=== PATIENT | male | born 1970 | race Caucasian/White ===

== ENCOUNTER 2016-09-11 11:53 | Emergency (ER) | payer OTHER ==
[~2016-09-11 11:53] MED LIST: ASPIR LOW81 MG PO; ASPIRIN 32325 MG/TAB PO; LEVAQUIN 5500 MG/TA1 PO; NO HOME MEDICATIONS; NORCO 325 MG-51 TA1 PO
[2016-09-11] MEDS ORDERED: KETOROLAC10 MG PO (14:09)
[2016-09-11 14:18] VITALS: BP 113/80
== END 2016-09-11 14:37 | disposition home or self-care (01) ==
LOC: ED 11:53
DX: S39.011A Strain of muscle, fascia and tendon of abdomen, initial encounter (principal); X58.XXXA Exposure to other specified factors, initial encounter
CPT/HCPCS: J1885

== ENCOUNTER → 2016-12-08 | Outpatient (CLI) | payer OTHER ==
[~2016-12-08] MED LIST changes: +KETOROLAC10 MG PO
== END ==
LOC: RAD 13:59
DX: R07.81 Pleurodynia (principal)

== ENCOUNTER → 2017-07-05 | Outpatient (CLI) | payer OTHER ==
[~2017-07-05] VITALS: Ht 167.6 cm; Wt 86.4 kg
[2017-07-05 16:01] VITALS: BP 125/91
[2017-07-05 16:06] LABS: ALBUMIN 4.6 g/dL (3.5-5.0); BUN/CREATININE RATIO 14.4 (6.0-26.0); POTASSIUM 4.1 mmol/L (3.6-5.0); TOTAL BILIRUBIN 0.7 mg/dL (0.2-1.3); TOTAL PROTEIN 7.8 g/dL (6.3-8.2)
[2017-07-05 16:12] LABS: EOS # 0.2 (0.04-0.40); EOS % 3.5 % (0.0-4.0); HEMATOCRIT 47.7 % (42.0-52.0); HEMOGLOBIN 16.5 g/dL (13.5-18.0); MEAN CELL VOLUME 83 fl (78-100); MEAN CORPUSCULAR HEMOGLOBIN 29 pg (27-31); MEAN CORPUSCULAR HGB CONC 35 g/dL (33-37); MEAN PLATELET VOLUME 9.7 fl (7.4-10.4); MONO # 0.7 (0.20-0.80); NEU # 4.2 (1.40-6.50); PLATELET COUNT 238 K/mm3 (130-400); RED BLOOD COUNT 5.77 M/mm3 (4.20-5.60); RED CELL DISTRIBUTION WIDTH 13.1 % (11.5-14.5); WHITE BLOOD COUNT 6.2 K/mm3 (4.8-10.8)
== END ==
LOC: AMSURD 15:25
PROVIDERS: Nurse Practitioner Family
DX: R05 Cough (principal); B33.0 Epidemic myalgia; R55 Syncope and collapse; R00.0 Tachycardia, unspecified

== ENCOUNTER → 2017-07-07 | Outpatient (CLI) | payer OTHER ==
[2017-07-05 16:01] VITALS: BP 125/91
== END ==
LOC: RAD 15:45
DX: R55 Syncope and collapse (principal); Z86.69 Personal history of other diseases of the nervous system and sense organs
CPT/HCPCS: Q9967

== ENCOUNTER → 2017-08-28 | Outpatient (CLI) | payer OTHER ==
[2017-07-05 16:01] VITALS: BP 125/91
== END ==
LOC: RAD 13:21
DX: R05 Cough (principal); Z88.5 Allergy status to narcotic agent

== ENCOUNTER → 2017-09-13 | Outpatient (CLI) | payer OTHER ==
[2017-07-05 16:01] VITALS: BP 125/91
== END ==
LOC: LAB 14:45
DX: J18.9 Pneumonia, unspecified organism (principal); Z88.5 Allergy status to narcotic agent

== ENCOUNTER → 2017-10-04 | Outpatient (CLI) | payer OTHER ==
[2017-07-05 16:01] VITALS: BP 125/91
== END ==
LOC: RAD 12:03
DX: J18.9 Pneumonia, unspecified organism (principal); N28.9 Disorder of kidney and ureter, unspecified
CPT/HCPCS: Q9967

== ENCOUNTER → 2017-10-11 | Outpatient (CLI) | payer OTHER ==
[2017-07-05 16:01] VITALS: BP 125/91
== END ==
LOC: RAD 14:18
DX: N28.1 Cyst of kidney, acquired (principal)
CPT/HCPCS: Q9967

== ENCOUNTER 2017-11-16 11:56 | Emergency (ER) | payer OTHER ==
[~2017-11-16] VITALS: Ht 167.6 cm; Wt 86.4 kg
[2017-11-16 12:37] LABS: HEMATOCRIT 42.7 % (42.0-52.0); MEAN CELL VOLUME 82 fl (78-100); MEAN CORPUSCULAR HEMOGLOBIN 29 pg (27-31); MEAN CORPUSCULAR HGB CONC 35 g/dL (33-37); MEAN PLATELET VOLUME 9.6 fl (7.4-10.4); PLATELET COUNT 224 K/mm3 (130-400); RED BLOOD COUNT 5.19 M/mm3 (4.20-5.60); RED CELL DISTRIBUTION WIDTH 12.4 % (11.5-14.5); WHITE BLOOD COUNT 9.8 K/mm3 (4.8-10.8)
[2017-11-16 12:56] LABS: BAND 1 % (0-10); LYMPHOCYTE 13 % (20-51); MONOCYTE 3 % (3-10); NEUTROPHILS 80 % (42-75)
[2017-11-16 13:12] LABS: ALBUMIN 4.2 g/dL (3.5-5.0); BUN/CREATININE RATIO 20.3 (6.0-26.0); CALCIUM 9.2 mg/dL (8.4-10.2); POTASSIUM 4.4 mmol/L (3.6-5.0); TOTAL BILIRUBIN 0.6 mg/dL (0.2-1.3); TOTAL PROTEIN 6.9 g/dL (6.3-8.2)
[2017-11-16 14:10] VITALS: BP 143/98
[2017-11-16 14:15] LABS: URINE APPEARANCE CLEAR; URINE BILIRUBIN NEGATIVE (NEGATIVE); URINE BLOOD 50 ery/uL (NEGATIVE); URINE COLOR YELLOW; URINE GLUCOSE NEGATIVE (NEGATIVE); URINE KETONE NEGATIVE (NEGATIVE); URINE LEUKOCYTE ESTERASE NEGATIVE (NEGATIVE); URINE MUCUS PRESENT (NOT PRESENT); URINE NITRATE NEGATIVE (NEGATIVE); URINE PROTEIN(semi-quant) 1+ mg/dL (NEGATIVE); URINE UROBILINOGEN NORMAL (NORMAL)
== END 2017-11-16 14:10 | disposition short-term general hospital (02) ==
LOC: ED 11:56
PROVIDERS: Physician Assistant
DX: S37.051A Moderate laceration of right kidney, initial encounter (principal); S37.011A Minor contusion of right kidney, initial encounter; V80.010A Animal-rider injured by fall from or being thrown from horse in noncollision accident, initial encounter
CPT/HCPCS: J2405; J3010; J7030; Q9967

== ENCOUNTER → 2017-12-12 | Outpatient (CLI) | payer OTHER ==
[2017-11-16 14:10] VITALS: BP 143/98
== END ==
LOC: RAD 11:32
DX: N28.89 Other specified disorders of kidney and ureter (principal)

== ENCOUNTER → 2018-06-13 | Outpatient (CLI) | payer OTHER ==
[2018-06-13 16:24] LABS: BASO # 0.1 (0.02-0.10); EOS # 0.2 (0.04-0.40); EOS % 2.6 % (0.0-4.0); HEMATOCRIT 47.7 % (42.0-52.0); HEMOGLOBIN 17.1 g/dL (13.5-18.0); LYMPH# 2.1 (1.50-4.00); MEAN CELL VOLUME 83 fl (78-100); MEAN CORPUSCULAR HEMOGLOBIN 30 pg (27-31); MEAN CORPUSCULAR HGB CONC 36 g/dL (33-37); MEAN PLATELET VOLUME 9.5 fl (7.4-10.4); MONO # 0.7 (0.20-0.80); NEU # 5.3 (1.40-6.50); PLATELET COUNT 267 K/mm3 (130-400); RED BLOOD COUNT 5.76 M/mm3 (4.20-5.60); RED CELL DISTRIBUTION WIDTH 12.5 % (11.5-14.5); WHITE BLOOD COUNT 8.4 K/mm3 (4.8-10.8)
[2018-06-13 16:34] LABS: ALBUMIN 4.9 g/dL (3.5-5.0); CALCIUM 9.9 mg/dL (8.4-10.2); POTASSIUM 4.8 mmol/L (3.6-5.0); TOTAL BILIRUBIN 0.9 mg/dL (0.2-1.3); TOTAL PROTEIN 7.7 g/dL (6.3-8.2)
== END ==
LOC: LAB 15:53
PROVIDERS: Family Medicine
DX: Z00.00 Encounter for general adult medical examination without abnormal findings (principal)

== ENCOUNTER → 2018-06-14 | Outpatient (CLI) | payer OTHER | LOC: CARDREHAB 14:47 | DX: R07.9 Chest pain, unspecified (principal) ==

== ENCOUNTER → 2018-06-18 | Day surgery (SDC) | payer OTHER | LOC: MSO 08:55 | DX: Z12.11 Encounter for screening for malignant neoplasm of colon (principal); Z12.0 Encounter for screening for malignant neoplasm of stomach; Z80.0 Family history of malignant neoplasm of digestive organs | CPT/HCPCS: J2405; J2704; J3010; J7120 ==

== ENCOUNTER → 2018-08-09 | Outpatient (CLI) | payer OTHER | LOC: RAD 08:27 | DX: Z87.442 Personal history of urinary calculi (principal) ==

== ENCOUNTER → 2018-10-11 | Outpatient (CLI) | payer OTHER ==
[~2018-10-11] MED LIST changes: +CIPRO500 M1 PO; +FLAGYL500 M1 PO; +ONDANSETRON HYDR4 MG PO; +PROTONIX TR40 M1 PO
[2018-10-11 13:45] LABS: HEMOGLOBIN 15.9 g/dL (13.5-18.0); MEAN CELL VOLUME 82 fl (78-100); MEAN CORPUSCULAR HEMOGLOBIN 29 pg (27-31); MEAN CORPUSCULAR HGB CONC 35 g/dL (33-37); MEAN PLATELET VOLUME 9.6 fl (7.4-10.4); PLATELET COUNT 230 K/mm3 (130-400); RED CELL DISTRIBUTION WIDTH 12.7 % (11.5-14.5); WHITE BLOOD COUNT 16.5 K/mm3 (4.8-10.8)
[2018-10-11 13:56] LABS: ALBUMIN 4.7 g/dL (3.5-5.0); CALCIUM 9.3 mg/dL (8.4-10.2); POTASSIUM 4.1 mmol/L (3.6-5.0); TOTAL BILIRUBIN 1.8 mg/dL (0.2-1.3); TOTAL PROTEIN 7.5 g/dL (6.3-8.2)
[2018-10-11 14:07] LABS: LYMPHOCYTE 6 % (20-51); MONOCYTE 5 % (3-10); NEUTROPHILS 89 % (42-75); PH-URINE 5.5 (5.0 - 8.0); URINE APPEARANCE CLEAR; URINE COLOR YELLOW; URINE PROTEIN(semi-quant) TRACE mg/dL (NEGATIVE)
[2018-10-11 14:08] LABS: URINE BILIRUBIN NEGATIVE (NEGATIVE); URINE BLOOD TRACE (NEGATIVE); URINE GLUCOSE NEGATIVE (NEGATIVE); URINE KETONE 2+ (NEGATIVE); URINE LEUKOCYTE ESTERASE TRACE (NEGATIVE); URINE MUCUS PRESENT (NOT PRESENT); URINE NITRATE NEGATIVE (NEGATIVE); URINE UROBILINOGEN NORMAL (NORMAL)
== END ==
LOC: RAD 13:30
PROVIDERS: Physician Assistant
DX: K57.90 Diverticulosis of intestine, part unspecified, without perforation or abscess without bleeding (principal)
CPT/HCPCS: Q9967

== ENCOUNTER → 2018-11-02 | Outpatient (CLI) | payer OTHER ==
[2018-10-15 11:02] VITALS: BP 122/82
[2018-11-02 13:44] LABS: EOS # 0.2 (0.04-0.40); EOS % 3.2 % (0.0-4.0); HEMATOCRIT 45.7 % (42.0-52.0); HEMOGLOBIN 15.7 g/dL (13.5-18.0); LYMPH# 1.3 (1.50-4.00); MEAN CELL VOLUME 82 fl (78-100); MEAN CORPUSCULAR HEMOGLOBIN 28 pg (27-31); MEAN CORPUSCULAR HGB CONC 34 g/dL (33-37); MEAN PLATELET VOLUME 9.3 fl (7.4-10.4); MONO # 0.4 (0.20-0.80); NEU # 3.4 (1.40-6.50); PLATELET COUNT 241 K/mm3 (130-400); RED BLOOD COUNT 5.57 M/mm3 (4.20-5.60); RED CELL DISTRIBUTION WIDTH 12.8 % (11.5-14.5); WHITE BLOOD COUNT 5.3 K/mm3 (4.8-10.8)
[2018-11-02 14:02] LABS: ALBUMIN 4.4 g/dL (3.5-5.0); POTASSIUM 4.1 mmol/L (3.5-5.1); TOTAL PROTEIN 6.9 g/dL (6.4-8.3)
== END ==
LOC: LAB 13:31
PROVIDERS: Physician Assistant
DX: K57.92 Diverticulitis of intestine, part unspecified, without perforation or abscess without bleeding (principal)

== ENCOUNTER 2019-01-21 14:27 | Emergency (ER) | payer OTHER ==
[~2019-01-21] VITALS: Ht 167.6 cm; Wt 81.8 kg
[2019-01-21 14:32] VITALS: BP 115/92
[2019-01-21 14:59] LABS: EOS # 0.2 (0.04-0.40); HEMOGLOBIN 15.3 g/dL (13.5-18.0); LYMPH# 1.1 (1.50-4.00); MEAN CELL VOLUME 81 fl (78-100); MEAN CORPUSCULAR HEMOGLOBIN 28 pg (27-31); MEAN CORPUSCULAR HGB CONC 35 g/dL (33-37); MEAN PLATELET VOLUME 9.2 fl (7.4-10.4); MONO # 0.6 (0.20-0.80); PLATELET COUNT 296 K/mm3 (130-400); RED BLOOD COUNT 5.44 M/mm3 (4.20-5.60); RED CELL DISTRIBUTION WIDTH 12.6 % (11.5-14.5)
[2019-01-21 15:10] LABS: ALBUMIN 3.9 g/dL (3.5-5.0); POTASSIUM 4.1 mmol/L (3.5-5.1)
[2019-01-21 15:11] LABS: CALCIUM 9.8 mg/dL (8.3-10.5)
[2019-01-21 15:12] LABS: TOTAL PROTEIN 7.8 g/dL (6.4-8.3)
[2019-01-21 15:14] LABS: TOTAL BILIRUBIN 0.5 mg/dL (0.2-1.2)
[2019-01-21 15:25] LABS: PH-URINE 5.5 (5.0 - 8.0); URINE APPEARANCE HAZY; URINE BILIRUBIN NEGATIVE (NEGATIVE); URINE BLOOD NEGATIVE (NEGATIVE); URINE COLOR YELLOW; URINE GLUCOSE NEGATIVE (NEGATIVE); URINE KETONE NEGATIVE (NEGATIVE); URINE NITRATE NEGATIVE (NEGATIVE); URINE PROTEIN(semi-quant) TRACE mg/dL (NEGATIVE); URINE UROBILINOGEN NORMAL (NORMAL)
[2019-01-21 15:26] LABS: URINE LEUKOCYTE ESTERASE TRACE (NEGATIVE)
== END 2019-01-21 16:59 | disposition home or self-care (01) ==
LOC: ED 14:27
PROVIDERS: Nurse Practitioner Primary Care
DX: E86.0 Dehydration (principal); R10.9 Unspecified abdominal pain; Z87.19 Personal history of other diseases of the digestive system; Z90.89 Acquired absence of other organs
CPT/HCPCS: J7030

== ENCOUNTER → 2019-02-05 | Outpatient (CLI) | payer OTHER ==
[~2019-02-05] VITALS: Ht 167.6 cm; Wt 81.8 kg
[2019-02-05 14:25] LABS: HEMATOCRIT 45.8 % (42.0-52.0); HEMOGLOBIN 15.6 g/dL (13.5-18.0); MEAN PLATELET VOLUME 9.3 fl (7.4-10.4); RED BLOOD COUNT 5.59 M/mm3 (4.20-5.60); RED CELL DISTRIBUTION WIDTH 13.1 % (11.5-14.5); WHITE BLOOD COUNT 6.2 K/mm3 (4.8-10.8)
[2019-02-05 14:26] LABS: ALBUMIN 4.2 g/dL (3.5-5.0); POTASSIUM 4.1 mmol/L (3.5-5.1)
[2019-02-05 14:27] LABS: CALCIUM 9.8 mg/dL (8.3-10.5)
[2019-02-05 14:28] LABS: TOTAL PROTEIN 7.1 g/dL (6.4-8.3)
[2019-02-05 14:30] LABS: TOTAL BILIRUBIN 0.7 mg/dL (0.2-1.2)
[2019-02-05 14:44] VITALS: BP 108/67
== END ==
LOC: LAB 12:59
PROVIDERS: Surgery
DX: Z01.818 Encounter for other preprocedural examination (principal)

== ENCOUNTER → 2019-05-29 | Outpatient (CLI) | payer OTHER ==
[2019-02-05 14:44] VITALS: BP 108/67
[2019-05-29 12:27] LABS: ALBUMIN 4.4 g/dL (3.5-5.0); POTASSIUM 4.5 mmol/L (3.5-5.1)
[2019-05-29 12:28] LABS: CALCIUM 9.5 mg/dL (8.3-10.5); EOS # 0.2 (0.04-0.40); EOS % 2.6 % (0.0-4.0); HEMATOCRIT 47.6 % (42.0-52.0); HEMOGLOBIN 16.7 g/dL (13.5-18.0); LYMPH# 1.5 (1.50-4.00); MEAN CELL VOLUME 81 fl (78-100); MEAN CORPUSCULAR HEMOGLOBIN 29 pg (27-31); MEAN CORPUSCULAR HGB CONC 35 g/dL (33-37); MEAN PLATELET VOLUME 9.2 fl (7.4-10.4); MONO # 0.5 (0.20-0.80); PLATELET COUNT 231 K/mm3 (130-400); RED BLOOD COUNT 5.85 M/mm3 (4.20-5.60); RED CELL DISTRIBUTION WIDTH 12.9 % (11.5-14.5); WHITE BLOOD COUNT 6.1 K/mm3 (4.8-10.8)
[2019-05-29 12:29] LABS: TOTAL PROTEIN 7.2 g/dL (6.4-8.3)
[2019-05-29 12:31] LABS: TOTAL BILIRUBIN 0.9 mg/dL (0.2-1.2)
== END ==
LOC: LAB 12:07
PROVIDERS: Physician Assistant
DX: R10.9 Unspecified abdominal pain (principal); M10.9 Gout, unspecified; M79.672 Pain in left foot; M79.676 Pain in unspecified toe(s)

== ENCOUNTER → 2019-08-19 | Outpatient (CLI) | payer OTHER ==
[2019-02-05 14:44] VITALS: BP 108/67
== END ==
LOC: RAD 14:00
DX: R93.421 Abnormal radiologic findings on diagnostic imaging of right kidney (principal)
CPT/HCPCS: Q9967

== ENCOUNTER → 2021-04-01 | Outpatient (CLI) | payer OTHER ==
[~2021-04-01] VITALS: Ht 167.6 cm; Wt 81.8 kg
[2021-04-01 15:56] VITALS: BP 147/88
[2021-04-01 16:55] VITALS: BP 146/84
== END ==
LOC: AMSURD 15:39
DX: U07.1 COVID-19 (principal)
CPT/HCPCS: J7030

== ENCOUNTER → 2021-04-21 | Outpatient (CLI) | payer OTHER ==
[2021-04-21 16:29] LABS: BASO # 0.07 K/mm3 (0.02-0.10); EOS # 0.21 K/mm3 (0.04-0.40); EOS % 2.2 % (0.0-4.0); HEMATOCRIT 47.1 % (42.0-52.0); HEMOGLOBIN 15.7 g/dL (13.5-18.0); LYMPH# 1.92 K/mm3 (1.50-4.00); MEAN CELL VOLUME 86 fl (78-100); MEAN CORPUSCULAR HEMOGLOBIN 29 pg (27-31); MEAN CORPUSCULAR HGB CONC 33 g/dL (33-37); MEAN PLATELET VOLUME 8.8 fl (7.4-10.4); MONO # 0.63 K/mm3 (0.20-0.80); NEU # 6.47 K/mm3 (1.40-6.50); PLATELET COUNT 229 K/mm3 (130-400); WHITE BLOOD COUNT 9.4 K/mm3 (4.8-10.8)
[2021-04-21 16:58] LABS: POTASSIUM 4.1 mmol/L (3.5-5.1)
[2021-04-21 16:59] LABS: CALCIUM 9.4 mg/dL (8.3-10.5)
[2021-04-21 17:00] LABS: TOTAL PROTEIN 6.9 g/dL (6.4-8.3)
[2021-04-21 17:02] LABS: TOTAL BILIRUBIN 0.7 mg/dL (0.2-1.2)
== END ==
LOC: LAB 15:55
PROVIDERS: Physician Assistant
DX: Z12.5 Encounter for screening for malignant neoplasm of prostate (principal); Z13.1 Encounter for screening for diabetes mellitus; K90.9 Intestinal malabsorption, unspecified; E78.5 Hyperlipidemia, unspecified; R05.9 Cough, unspecified

== ENCOUNTER → 2022-07-20 | Outpatient (CLI) | payer OTHER | LOC: RAD 07:53 | DX: K31.9 Disease of stomach and duodenum, unspecified (principal); K44.9 Diaphragmatic hernia without obstruction or gangrene; K76.0 Fatty (change of) liver, not elsewhere classified; K57.30 Diverticulosis of large intestine without perforation or abscess without bleeding | CPT/HCPCS: Q9967 ==

== ENCOUNTER → 2023-04-03 | Outpatient (CLI) | payer OTHER ==
[~2023-04-03] MED LIST changes: +ALEVE220 M1 PO; +LIDOCAINE1 EAC1 TP
[2023-04-03 15:04] LABS: BASO # 0.04 K/mm3 (0.02-0.10); EOS % 1.3 % (0.0-4.0); HEMATOCRIT 46.2 % (42.0-52.0); HEMOGLOBIN 15.7 g/dL (13.5-18.0); LYMPH# 1.57 K/mm3 (1.50-4.00); MEAN CELL VOLUME 84 fl (78-100); MEAN CORPUSCULAR HEMOGLOBIN 29 pg (27-31); MEAN CORPUSCULAR HGB CONC 34 g/dL (33-37); MEAN PLATELET VOLUME 9.1 fl (7.4-10.4); MONO # 0.61 K/mm3 (0.20-0.80); NEU # 5.54 K/mm3 (1.40-6.50); PLATELET COUNT 214 K/mm3 (130-400); RED CELL DISTRIBUTION WIDTH 12.3 % (11.5-14.5); WHITE BLOOD COUNT 7.9 K/mm3 (4.8-10.8)
[2023-04-03 15:08] LABS: ALBUMIN 4.5 g/dL (3.5-5.0)
[2023-04-03 15:09] LABS: CALCIUM 9.3 mg/dL (8.3-10.5)
[2023-04-03 15:11] LABS: TOTAL PROTEIN 7.1 g/dL (6.4-8.3)
[2023-04-03 15:12] LABS: TOTAL BILIRUBIN 1.4 mg/dL (0.2-1.2)
[2023-04-03 16:23] LABS: ERYTHROCYTE SEDIMENTATION RATE 3 mm/hr (0-20)
== END ==
LOC: RAD 14:45
PROVIDERS: Nurse Practitioner Family
DX: M25.461 Effusion, right knee (principal)

== ENCOUNTER → 2023-04-13 | Outpatient (CLI) | payer OTHER | LOC: RAD 16:36 | DX: S89.91XD Unspecified injury of right lower leg, subsequent encounter (principal); X58.XXXD Exposure to other specified factors, subsequent encounter ==

== ENCOUNTER 2023-08-30 10:31 | Emergency (ER) | payer OTHER ==
[~2023-08-30] VITALS: Ht 165.1 cm; Wt 90.9 kg
[2023-08-30] MEDS ORDERED: Morphine 4 MG/ML VIAL IV ONE ×2 (11:15→13:00)
[2023-08-30] MEDS ORDERED: Ondansetron 4 MG/2 ML VIAL IV ONE (11:15)
[2023-08-30 11:28] LABS: BASO # 0.05 K/mm3 (0.02-0.10); EOS # 0.25 K/mm3 (0.04-0.40); HEMATOCRIT 47.9 % (42.0-52.0); HEMOGLOBIN 16.3 g/dL (13.5-18.0); LYMPH# 1.42 K/mm3 (1.50-4.00); MEAN CELL VOLUME 84 fl (78-100); MEAN CORPUSCULAR HEMOGLOBIN 29 pg (27-31); MEAN CORPUSCULAR HGB CONC 34 g/dL (33-37); MEAN PLATELET VOLUME 9.2 fl (7.4-10.4); MONO # 0.47 K/mm3 (0.20-0.80); NEU # 3.96 K/mm3 (1.40-6.50); PLATELET COUNT 209 K/mm3 (130-400); RED BLOOD COUNT 5.71 M/mm3 (4.20-5.60); RED CELL DISTRIBUTION WIDTH 12.5 % (11.5-14.5); WHITE BLOOD COUNT 6.2 K/mm3 (4.8-10.8)
[2023-08-30 11:31] LABS: ALBUMIN 4.4 g/dL (3.5-5.0); SODIUM 139 mmol/L (136-145)
[2023-08-30 11:32] LABS: CALCIUM 9.7 mg/dL (8.3-10.5)
[2023-08-30 11:33] LABS: GLUCOSE 108 mg/dL (75-110); TOTAL PROTEIN 6.7 g/dL (6.4-8.3)
[2023-08-30 11:34] LABS: CARBON DIOXIDE 24 mmol/L (22-29)
[2023-08-30 11:35] LABS: TOTAL BILIRUBIN 0.7 mg/dL (0.2-1.2)
[2023-08-30 11:38] LABS: URINE APPEARANCE CLEAR (CLEAR); URINE BILIRUBIN NEGATIVE (NEGATIVE); URINE BLOOD NEGATIVE (NEGATIVE); URINE COLOR YELLOW (YELLOW); URINE GLUCOSE TRACE (NEGATIVE); URINE KETONE NEGATIVE (NEGATIVE); URINE LEUKOCYTE ESTERASE NEGATIVE (NEGATIVE); URINE NITRATE NEGATIVE (NEGATIVE); URINE PROTEIN(semi-quant) NEGATIVE (NEGATIVE)
[2023-08-30 11:39] LABS: AST-SGOT 26 U/L (5-34)
[2023-08-30 11:40] LABS: ALT/SGPT 46 U/L (0-55)
[2023-08-30 11:42] LABS: URINE MUCUS PRESENT (NOT PRESENT)
[2023-08-30 11:46] LABS: TROPONIN-I < 0.030 ng/mL (0.00-0.033)
[2023-08-30 13:33] VITALS: BP 132/91
== END 2023-08-30 13:30 | disposition home or self-care (01) ==
LOC: ED 10:31
PROVIDERS: Family Medicine
DX: I16.1 Hypertensive emergency (principal)
CPT/HCPCS: J2270; J2405

== ENCOUNTER → 2023-09-06 | Outpatient (CLI) | payer OTHER | LOC: LAB 08:22 | DX: Z12.5 Encounter for screening for malignant neoplasm of prostate (principal); E78.5 Hyperlipidemia, unspecified; R53.83 Other fatigue; R73.9 Hyperglycemia, unspecified; K90.9 Intestinal malabsorption, unspecified ==

== ENCOUNTER → 2024-09-13 | Outpatient (CLI) | payer OTHER ==
[2024-09-13 16:20] LABS: ALBUMIN 4.5 g/dL (3.5-5.0)
[2024-09-13 16:22] LABS: CALCIUM 9.2 mg/dL (8.3-10.5)
[2024-09-13 16:23] LABS: TOTAL PROTEIN 7.1 g/dL (6.4-8.3)
[2024-09-13 17:07] LABS: URINE WBC 0 /hpf (0-3)
[2024-09-13 17:31] LABS: PH-URINE 5.5 (5.0 - 8.0); URINE APPEARANCE CLEAR (CLEAR); URINE BILIRUBIN NEGATIVE (NEGATIVE); URINE BLOOD NEGATIVE (NEGATIVE); URINE COLOR YELLOW (YELLOW); URINE GLUCOSE NEGATIVE (NEGATIVE); URINE KETONE NEGATIVE (NEGATIVE); URINE LEUKOCYTE ESTERASE NEGATIVE (NEGATIVE); URINE NITRATE NEGATIVE (NEGATIVE); URINE PROTEIN(semi-quant) NEGATIVE (NEGATIVE)
[2024-09-13 18:09] LABS: BASO # 0.04 K/mm3 (0.02-0.10); EOS # 0.15 K/mm3 (0.04-0.40); EOS % 2.2 % (0.0-4.0); HEMATOCRIT 47.2 % (42.0-52.0); HEMOGLOBIN 16.3 g/dL (13.5-18.0); LYMPH# 1.63 K/mm3 (1.50-4.00); MEAN CELL VOLUME 84 fl (78-100); MEAN CORPUSCULAR HEMOGLOBIN 29 pg (27-31); MEAN CORPUSCULAR HGB CONC 35 g/dL (33-37); MEAN PLATELET VOLUME 9.4 fl (7.4-10.4); MONO # 0.46 K/mm3 (0.20-0.80); NEU # 4.44 K/mm3 (1.40-6.50); PLATELET COUNT 233 K/mm3 (130-400); RED BLOOD COUNT 5.65 M/mm3 (4.20-5.60); RED CELL DISTRIBUTION WIDTH 12.3 % (11.5-14.5); WHITE BLOOD COUNT 6.8 K/mm3 (4.8-10.8)
== END ==
LOC: LAB 15:48
PROVIDERS: Physician Assistant
DX: Z13.1 Encounter for screening for diabetes mellitus (principal); Z13.220 Encounter for screening for lipoid disorders; K90.9 Intestinal malabsorption, unspecified; E29.1 Testicular hypofunction; R35.0 Frequency of micturition